=== PATIENT | female | born 1980 | race African-American/Black ===

== ENCOUNTER → 2017-12-22 | Outpatient (CLI) | payer OTHER ==
[2017-12-22 10:31] LABS: Anisocytosis Slight; Basophils % (A) 0 %; Eosinophils # (A) 0.2 k/uL (0-0.7); Eosinophils % (A) 3 %; HGB 9.4 gm/dL (11.4-16.0); Hypochromasia Marked; Lymphocytes # (A) 2.5 k/uL (1.0-4.8); Lymphocytes % (A) 47 %; MCH 20.5 pg (25.0-35.0); MCHC 28.4 g/dL (31.0-37.0); MCV 72.2 fL (80.0-100.0); Mean Platelet Volume 6.4; Microcytosis Moderate; Monocytes # (A) 0.3 k/uL (0-1.0); Monocytes % (A) 5 %; Neutrophils # (A) 2.3 k/uL (1.3-7.7); Neutrophils % (A) 42 %; Platelet Count 350 k/uL (150-450); RBC 4.57 m/uL (3.80-5.40); RDW 16.1 % (11.5-15.5); WBC 5.4 k/uL (3.8-10.6)
[2017-12-22 11:02] LABS: ALT 22 U/L (9-52); AST 22 U/L (14-36); Albumin 3.7 g/dL (3.5-5.0); Alkaline Phosphatase 67 U/L (38-126); Anion Gap 8 mmol/L; Blood Urea Nitrogen 10 mg/dL (7-17); Carbon Dioxide 29 mmol/L (22-30); Chloride 105 mmol/L (98-107); Cholesterol 153 mg/dL (<200); Glucose 109 mg/dL (74-99); HDL Cholesterol 26 mg/dL (40-60); LDL Cholesterol,Calculated 110 mg/dL (0-99); Potassium 4.1 mmol/L (3.5-5.1); Sodium 142 mmol/L (137-145); Total Bilirubin 0.4 mg/dL (0.2-1.3); Total Protein 6.9 g/dL (6.3-8.2); Triglycerides 85 mg/dL (<150)
[2017-12-22 19:23] LABS: Hemoglobin A1C 5.9 % (4.0-6.0)
== END | disposition home or self-care (01) ==
LOC: LABWHC1 09:44
PROVIDERS: ATTEND Internal Medicine
DX: D64.9 Anemia, unspecified (principal); J45.909 Unspecified asthma, uncomplicated; R53.83 Other fatigue; R73.01 Impaired fasting glucose; Z13.6 Encounter for screening for cardiovascular disorders
CPT/HCPCS: 36415; 80053; 80061; 83036; 84443; 85025

== ENCOUNTER 2020-02-01 10:04 | Emergency (ER) | payer OTHER ==
[2020-02-01 10:09] VITALS: BP 135/86; PULSE 94; RESP 18; TEMP 98.7
--- NOTE | 2020-02-01 10:36 | ED ---
URI HPI - General Chief Complaint: Upper Respiratory Infection Stated Complaint: Congested Time Seen by Provider: 02/01/20 10:10 Source: patient Mode of arrival: ambulatory Limitations: no limitations - History of Present Illness Initial Comments: Patient is a 39-year-old female presenting to the emergency Department with complaints of sinus congestion, pain for the past 4-5 days. Patient states she's been trying to treat the symptoms at home with [id number] medications but she does not feel like its getting any better. Patient is more worried than usual as her daughter is currently going through chemo treatments and she does not want this to get any worse. Patient denies having any fever, chills, chest pain, shortness of breath. She states she only has a very mild cough but more so the facial congestion. She denies any abdominal pain or nausea or vomiting. She states she does get sinus infections at least once a twice a year. She denies having headache or facial trauma. She has no further complaints at this time. Upon arrival to the ER, her vitals are stable. - Related Data Previous Rx's Medication Instructions Recorded Azithromycin [Zithromax Z-pack] 0 mg PO DIRECTED #1 pack 02/01/20 Allergies Allergy/AdvReac Type Severity Reaction Status Date / Time No Known Allergies Allergy Verified 02/01/20 10:09 Review of Systems ROS Statement: Those systems with pertinent positive or pertinent negative responses have been documented in the HPI. ROS Other: All systems not noted in ROS Statement are negative. Past Medical History Additional Past Medical History / Comment(s): Hx vaginal bleeding History of Any Multi-Drug Resistant Organisms: None Reported Past Surgical History: Section, Orthopedic Surgery Additional Past Surgical History / Comment(s): Right lower leg reconstruction,D&C Past Anesthesia/Blood Transfusion Reactions: Postoperative Nausea & Vomiting (PONV) Past Psychological History: Anxiety, Depression Smoking Status: Never smoker Past Alcohol Use History: None Reported Past Drug Use History: None Reported - Past Family History Daughter(s) Family Medical History: Cancer Additional Family Medical History / Comment(s): Brain General Exam - General Exam Comments Initial Comments: GENERAL: Patient is well-developed and well-nourished. Patient is nontoxic and in no acute distress. HEAD: Atraumatic, normocephalic. EYES: Pupils equal round and reactive to light, extraocular movements intact, sclera anicteric, conjunctiva are normal. Eyelids were unremarkable. ENT: TMs normal, nares patent, oropharynx clear without exudates. Moist mucous membranes. Mild pain with pressure over the frontal and maxillary sinuses. NECK: Normal range of motion, supple without lymphadenopathy or JVD. LUNGS: Unlabored respirations. Breath sounds clear to auscultation bilaterally and equal. No wheezes rales or rhonchi. HEART: Regular rate and rhythm without murmurs, rubs or gallops. ABDOMEN: Soft, nontender, normoactive bowel sounds. No guarding, no rebound. No masses appreciated. : Deferred MUSCULOSKELETAL: Normal extremities with adequate strength and normal range of motion, no pitting or edema. No clubbing or cyanosis. NEUROLOGICAL: Patient is alert and oriented x 3. Motor and sensory are also intact. Normal speech, normal gait. PSYCH: Normal mood, normal affect. SKIN: Warm, Dry, normal turgor, no rashes or lesions noted. Limitations: no limitations Course Vital Signs 02/01/20 10:07 Temperature 98.7 F Pulse Rate 94 Respiratory 18 Rate Blood Pressure 135/86 O2 Sat by Pulse 100 Oximetry Medical Decision Making - Medical Decision Making Patient is a 39-year-old female here for sinus congestion, pain and pressure for the last 4-5 days. She does have history sinus infections. She denies any fevers, her vital signs are stable today. Her exam is unremarkable except for some pain over her frontal and maxillary sinuses with palpation. I will start patient on an antibiotic for possible sinus infection. She is worried because her daughter is currently going through chemo and she does not want to get her daughter sick. Patient is stable for discharge. I recommended following up with her PCP if symptoms persist. Patient is in agreement with this plan of care. She is stable for discharge. Disposition Clinical Impression: Sinusitis Disposition: HOME SELF-CARE Condition: Stable Instructions (If sedation given, give patient instructions): Sinusitis (ED) Additional Instructions: Please return to the Emergency Department if symptoms worsen or any other concerns. Take antibiotic as prescribed. Trial of Afrin nasal spray for congestion. Follow-up with PCP as needed. Prescriptions: Azithromycin [Zithromax Z-pack] 0 mg PO DIRECTED #1 pack Is patient prescribed a controlled substance at d/c from ED?: No Referrals: None,Stated [Primary Care Provider] - 1-2 days
== END 2020-02-01 10:37 | disposition home or self-care (01) ==
LOC: EC 10:04
DX: J32.9 Chronic sinusitis, unspecified (principal)
CPT/HCPCS: 99283

== ENCOUNTER 2021-02-16 08:28 | Emergency (ER) | payer OTHER ==
--- NOTE | 2021-02-16 10:50 | ED ---
URI HPI - General Chief Complaint: Upper Respiratory Infection Stated Complaint: LOSS OF VOICE Time Seen by Provider: 02/16/21 10:10 Source: patient, RN notes reviewed Mode of arrival: ambulatory Limitations: no limitations - History of Present Illness Initial Comments: She is a 40-year-old female presenting to the emergency department with concerns of upper respiratory symptoms for the last 1-2 weeks. Patient states about 2 weeks ago she was outside when it was raining, started developing a sore throat, congestion. She states the symptoms have since mostly cleared, then she developed loss of voice a few days ago and continues to cough up phlegm. She states the phlegm has changed colors to a green color. She constantly gets covid swabs secondary to her daughter going to [facility] receiving chemo treatment. She states she has been negative for weeks now. Last test was a few days ago. She is concerned with her daughter's house and does not want to be sick around her. She is requesting medication. She denies any chest pain or shortness of breath. She denies any fevers or chills, no nausea or vomiting, no abdominal pain. She has no further complaints at this time. Upon arrival to the ER, her vitals are stable. - Related Data Previous Rx's Medication Instructions Recorded Azithromycin [Zithromax Z-pack (6 0 mg PO DIRECTED #1 pack 02/01/20 tabs)] Azithromycin [Zithromax Z-pack (6 0 mg PO DIRECTED #6 tab 02/16/21 tabs)] Allergies Allergy/AdvReac Type Severity Reaction Status Date / Time No Known Allergies Allergy Verified 02/16/21 09:01 Review of Systems ROS Statement: Those systems with pertinent positive or pertinent negative responses have been documented in the HPI. ROS Other: All systems not noted in ROS Statement are negative. Past Medical History Additional Past Medical History / Comment(s): Hx vaginal bleeding History of Any Multi-Drug Resistant Organisms: None Reported Past Surgical History: Section, Orthopedic Surgery Additional Past Surgical History / Comment(s): Right lower leg reconstruction,D&C Past Anesthesia/Blood Transfusion Reactions: Postoperative Nausea & Vomiting (PONV) Past Psychological History: Anxiety, Depression Smoking Status: Never smoker Past Alcohol Use History: None Reported Past Drug Use History: None Reported - Past Family History Daughter(s) Family Medical History: Cancer Additional Family Medical History / Comment(s): Brain General Exam - General Exam Comments Initial Comments: GENERAL: Patient is well-developed and well-nourished. Patient is nontoxic and in no acute distress. HEAD: Atraumatic, normocephalic. EYES: Pupils equal round and reactive to light, extraocular movements intact, sclera anicteric, conjunctiva are normal. Eyelids were unremarkable. ENT: Nares patent, oropharynx clear without exudates. Moist mucous membranes. NECK: Normal range of motion, supple without lymphadenopathy or JVD. LUNGS: Unlabored respirations. Breath sounds clear to auscultation bilaterally and equal. No wheezes rales or rhonchi. HEART: Regular rate and rhythm without murmurs, rubs or gallops. MUSCULOSKELETAL: Normal extremities with adequate strength and normal range of motion, no pitting or edema. No clubbing or cyanosis. NEUROLOGICAL: Patient is alert and oriented x 3. Symmetrical smile. Normal speech, normal gait. PSYCH: Normal mood, normal affect. SKIN: Warm, Dry, normal turgor, no rashes or lesions noted. Limitations: no limitations Medical Decision Making - Medical Decision Making Patient is a 40-year-old female here with upper respiratory type symptoms over the past 1-2 weeks. No fevers, covid test a few days ago was negative. No chest pain or shortness of breath. Her exam is unremarkable except for loss of voice. Her vitals are stable. Patient is concerned as her daughter is sick and receiving chemo treatments at this time. She is requesting antibiotics. I will prescribe her a Z-Alfonso for upper respiratory infection. She can follow-up with her primary. She is agreeable to this and is stable for discharge. Disposition Clinical Impression: Acute upper respiratory infection Disposition: HOME SELF-CARE Condition: Stable Instructions (If sedation given, give patient instructions): Upper Respiratory Infection (ED) Additional Instructions: Please return to the Emergency Department if symptoms worsen or any other concerns. Take antibiotic as prescribed. May use Tylenol or Motrin as needed for any symptoms. Please follow-up with your primary care. Prescriptions: Azithromycin [Zithromax Z-pack (6 tabs)] 0 mg PO DIRECTED #6 tab Is patient prescribed a controlled substance at d/c from ED?: No Referrals: None,Stated [Primary Care Provider] - 1-2 days Time of Disposition: 10:50
[2021-02-16 11:12] VITALS: BP 139/95; PULSE 107; RESP 18; TEMP 98.6
== END 2021-02-16 11:16 | disposition home or self-care (01) ==
LOC: EC 08:28
DX: J06.9 Acute upper respiratory infection, unspecified (principal)
CPT/HCPCS: 99283

== ENCOUNTER 2021-11-22 06:52 | Emergency (ER) | payer OTHER ==
[2021-11-22 07:09] VITALS: TEMP 97.4
[2021-11-22 07:20] VITALS: RESP 16
--- NOTE | 2021-11-22 07:20 | ED ---
General Adult HPI - General Chief complaint: Upper Respiratory Infection Stated complaint: Cough Time Seen by Provider: 11/22/21 07:06 Source: patient, RN notes reviewed, old records reviewed Mode of arrival: ambulatory Limitations: no limitations - History of Present Illness Initial comments: 41-year-old female with 3 or 4 days of cough, congestion, subjective fever and chills. Patient states she initially thought this was just related to seasonal ALLERGIES. Has progressed. She denies measured fever but has had hot and cold sensation. She denies GI symptoms, no nausea vomiting or diarrhea. No dyspnea. Patient is otherwise healthy. - Related Data Home Medications Medication Instructions Recorded Confirmed guaiFENesin [Mucinex] 600 mg PO BID PRN 02/16/21 02/16/21 Previous Rx's Medication Instructions Recorded Azithromycin [Zithromax Z-pack (6 0 mg PO DIRECTED #6 tab 02/16/21 tabs)] Allergies Allergy/AdvReac Type Severity Reaction Status Date / Time No Known Allergies Allergy Verified 02/16/21 10:56 Review of Systems ROS Statement: Those systems with pertinent positive or pertinent negative responses have been documented in the HPI. ROS Other: All systems not noted in ROS Statement are negative. Past Medical History Additional Past Medical History / Comment(s): Hx vaginal bleeding, leg pain History of Any Multi-Drug Resistant Organisms: None Reported Past Surgical History: Section, Orthopedic Surgery Additional Past Surgical History / Comment(s): Right lower leg reconstruction,D&C Past Anesthesia/Blood Transfusion Reactions: Postoperative Nausea & Vomiting (PONV) Past Psychological History: Anxiety, Depression Smoking Status: Never smoker Past Alcohol Use History: None Reported Past Drug Use History: None Reported - Past Family History Daughter(s) Family Medical History: Cancer Additional Family Medical History / Comment(s): Brain General Exam Limitations: no limitations General appearance: alert, in no apparent distress Head exam: Present: atraumatic, normocephalic Eye exam: Present: normal appearance, PERRL ENT exam: Present: normal oropharynx, mucous membranes moist Neck exam: Present: normal inspection. Absent: tenderness, meningismus Respiratory exam: Present: normal lung sounds bilaterally. Absent: respiratory distress, wheezes Cardiovascular Exam: Present: regular rate, normal rhythm GI/Abdominal exam: Present: soft. Absent: distended, tenderness Extremities exam: Present: normal inspection, normal capillary refill Neurological exam: Present: alert, oriented X3, CN II-XII intact. Absent: motor sensory deficit Psychiatric exam: Present: normal affect, normal mood Skin exam: Present: warm, dry, intact. Absent: cyanosis, diaphoretic Course Vital Signs 11/22/21 11/22/21 06:59 07:14 Temperature 97.4 F L Pulse Rate 77 Respiratory 18 16 Rate Blood Pressure 124/84 O2 Sat by Pulse 98 Oximetry Medical Decision Making - Medical Decision Making 41-year-old female with cough, congestion. Patient is well-appearing. Stable vitals. X-rays performed which is negative for focal pneumonia. Coronavirus testing is negative. This likely viral URI. Patient will follow with primary care provider. - Lab Data Lab Results 11/22/21 Range/Units 07:30 Coronavirus (PCR) Not Detected (Not Detectd) Disposition Clinical Impression: Viral upper respiratory infection Disposition: HOME SELF-CARE Condition: Good Instructions (If sedation given, give patient instructions): Upper Respiratory Infection (ED) Is patient prescribed a controlled substance at d/c from ED?: No Referrals: None,Stated [Primary Care Provider] - 1-2 days Taras Fernandez III, MD [STAFF PHYSICIAN] - 1-2 days Randell Kamara MD [STAFF PHYSICIAN] - 1-[address] Barry MD [REFERRING] - 1-2 days Time of Disposition: 08:03
--- NOTE | 2021-11-22 07:50 | XR ---
EXAMINATION TYPE: XR chest 2V DATE OF EXAM: 11/22/2021 COMPARISON: Chest x-ray May 08, 2014 HISTORY: Cough and fever and chills. TECHNIQUE: Frontal and lateral views of the chest are obtained. FINDINGS: There is no suspicious new focal air space opacity, pleural effusion, or pneumothorax seen . The cardiac silhouette size is mildly enlarged. The osseous structures are intact. IMPRESSION: No suspicious peripheral increased opacity.
[2021-11-22 08:24] VITALS: BP 126/78; PULSE 68
== END 2021-11-22 08:23 | disposition home or self-care (01) ==
LOC: EC 06:52
DX: J06.9 Acute upper respiratory infection, unspecified (principal); Z20.822 Contact with and (suspected) exposure to COVID-19
CPT/HCPCS: 71046; 87635; 99283

== ENCOUNTER 2022-03-23 08:17 | Emergency (ER) | payer OTHER ==
[2022-03-23 08:27] VITALS: TEMP 97.6
--- NOTE | 2022-03-23 09:03 | ED ---
URI HPI - General Chief Complaint: Upper Respiratory Infection Stated Complaint: congestion Time Seen by Provider: 03/23/22 08:21 Source: patient, RN notes reviewed Mode of arrival: ambulatory Limitations: no limitations - History of Present Illness Initial Comments: Patient is a 41 year old female presenting to the ER with a chief complaint of cough and congestion. She reports this began a little over a week ago. She experienced a cough and congestion. Patient took over the counter cough medication and pain relievers which helped. Patient took an at home COVID test three days ago which was negative. Patient denies fevers, chills, nightsweats, abdominal pain, shortness of breath, or chest pain. - Related Data Home Medications Medication Instructions Recorded Confirmed guaiFENesin [Mucinex] 600 mg PO BID PRN 02/16/21 02/16/21 Previous Rx's Medication Instructions Recorded Azithromycin [Zithromax Z-pack (6 0 mg PO DIRECTED #6 tab 02/16/21 tabs)] Allergies Allergy/AdvReac Type Severity Reaction Status Date / Time No Known Allergies Allergy Verified 03/23/22 08:27 Review of Systems ROS Statement: Those systems with pertinent positive or pertinent negative responses have been documented in the HPI. ROS Other: All systems not noted in ROS Statement are negative. Past Medical History Additional Past Medical History / Comment(s): Hx vaginal bleeding, leg pain History of Any Multi-Drug Resistant Organisms: None Reported Past Surgical History: Section, Orthopedic Surgery Additional Past Surgical History / Comment(s): Right lower leg reconstruction,D&C Past Anesthesia/Blood Transfusion Reactions: Postoperative Nausea & Vomiting (PONV) Past Psychological History: Anxiety, Depression Smoking Status: Never smoker Past Alcohol Use History: None Reported Past Drug Use History: None Reported - Past Family History Daughter(s) Family Medical History: Cancer Additional Family Medical History / Comment(s): Brain General Exam Limitations: no limitations General appearance: alert, in no apparent distress Head exam: Present: atraumatic, normocephalic, normal inspection Eye exam: Present: normal appearance, PERRL, EOMI. Absent: scleral icterus, conjunctival injection, periorbital swelling ENT exam: Present: normal exam, mucous membranes moist Respiratory exam: Present: normal lung sounds bilaterally. Absent: respiratory distress, wheezes, rales, rhonchi, stridor Cardiovascular Exam: Present: regular rate, normal rhythm, normal heart sounds. Absent: systolic murmur, diastolic murmur, rubs, gallop, clicks GI/Abdominal exam: Present: soft, normal bowel sounds. Absent: distended, tenderness, guarding, rebound, rigid Neurological exam: Present: alert, oriented X3, CN II-XII intact Psychiatric exam: Present: normal affect, normal mood Course Vital Signs 03/23/22 08:26 Temperature 97.6 F Pulse Rate 80 Respiratory 18 Rate Blood Pressure 130/86 O2 Sat by Pulse 98 Oximetry Medical Decision Making - Medical Decision Making 41-year-old female presented for cough congestion. Patient is negative COVID-19 though daughter digits has positive COVID-19 patient is stable for discharge return parameters were discussed. - Lab Data Lab Results 03/23/22 Range/Units 08:47 Coronavirus (PCR) Not Detected (Not Detectd) Disposition Clinical Impression: Acute upper respiratory infection, Exposure to COVID-19 virus Disposition: HOME SELF-CARE Condition: Stable Instructions (If sedation given, give patient instructions): Upper Respiratory Infection (ED) Additional Instructions: Please return to the Emergency Department if symptoms worsen or any other concerns. Is patient prescribed a controlled substance at d/c from ED?: No Referrals: None,Stated [Primary Care Provider] - 1-2 days Time of Disposition: 10:15
[2022-03-23 10:23] VITALS: BP 131/74; PULSE 92; RESP 16
== END 2022-03-23 10:23 | disposition home or self-care (01) ==
LOC: EC 08:17
DX: J06.9 Acute upper respiratory infection, unspecified (principal); F41.9 Anxiety disorder, unspecified; F32.A Depression, unspecified; Z20.822 Contact with and (suspected) exposure to COVID-19
CPT/HCPCS: 87635; 99283

== ENCOUNTER 2022-04-05 21:10 | Emergency (ER) | payer OTHER ==
[2022-04-05 21:19] VITALS: RESP 16
[2022-04-05] MEDS ORDERED: AZITHROMYCIN 500 MG TAB PO STA (22:12)
--- NOTE | 2022-04-05 22:18 | ED ---
URI HPI - General Chief Complaint: Upper Respiratory Infection Stated Complaint: Re-check,Congestion Time Seen by Provider: 04/05/22 21:25 Source: patient, RN notes reviewed, old records reviewed Mode of arrival: ambulatory Limitations: no limitations - History of Present Illness Initial Comments: This is a 41-year-old female to the emergency department for evaluation today. Patient of cough congestion runny nose upper respiratory symptoms. Persistent symptoms here in the ER despite 1 week for coronavirus and negative. Patient feels like symptoms of been in her chest throughout and upper airway, nose. MD Complaint: cough, sore throat, nasal congestion -: hour(s) Severity: mild Severity scale (1-10): 3 Quality: dull Consistency: intermittent Improves With: nothing Worsens With: activity Context: sick contacts Associated Symptoms: nasal congestion, sore throat, cough, shortness of breath Treatments Prior to Arrival: none - Related Data Home Medications Medication Instructions Recorded Confirmed guaiFENesin [Mucinex] 600 mg PO BID PRN 02/16/21 02/16/21 Previous Rx's Medication Instructions Recorded RX: Azithromycin [Zithromax Z-pack 0 mg PO DIRECTED #6 tab 02/16/21 (6 tabs)] Loratadine-Pseudoeph 10-240 mg 1 tab PO DAILY #10 tab 04/05/22 [Claritin-D 24 Hour] RX: Azithromycin [Zithromax] 500 mg PO DAILY 5 Days #5 tab 04/05/22 Allergies Allergy/AdvReac Type Severity Reaction Status Date / Time No Known Allergies Allergy Verified 04/05/22 21:16 Review of Systems ROS Statement: Those systems with pertinent positive or pertinent negative responses have been documented in the HPI. ROS Other: All systems not noted in ROS Statement are negative. Past Medical History Additional Past Medical History / Comment(s): Hx vaginal bleeding, leg pain History of Any Multi-Drug Resistant Organisms: None Reported Past Surgical History: Section, Orthopedic Surgery Additional Past Surgical History / Comment(s): Right lower leg reconstruction,D&C Past Anesthesia/Blood Transfusion Reactions: Postoperative Nausea & Vomiting (PONV) Past Psychological History: Anxiety, Depression Smoking Status: Never smoker Past Alcohol Use History: None Reported Past Drug Use History: None Reported - Past Family History Daughter(s) Family Medical History: Cancer Additional Family Medical History / Comment(s): Brain General Exam Limitations: no limitations General appearance: alert, in no apparent distress Head exam: Present: atraumatic, normocephalic, normal inspection Eye exam: Present: normal appearance, PERRL, EOMI. Absent: scleral icterus, conjunctival injection, periorbital swelling ENT exam: Present: normal exam, mucous membranes moist Neck exam: Present: normal inspection. Absent: tenderness, meningismus, lymphadenopathy Respiratory exam: Present: normal lung sounds bilaterally. Absent: respiratory distress, wheezes, rales, rhonchi, stridor Cardiovascular Exam: Present: regular rate, normal rhythm, normal heart sounds. Absent: systolic murmur, diastolic murmur, rubs, gallop, clicks GI/Abdominal exam: Present: soft, normal bowel sounds. Absent: distended, tenderness, guarding, rebound, rigid Extremities exam: Present: normal inspection, full ROM, normal capillary refill. Absent: tenderness, pedal edema, joint swelling, calf tenderness Back exam: Present: normal inspection Neurological exam: Present: alert, oriented X3, CN II-XII intact Psychiatric exam: Present: normal affect, normal mood Skin exam: Present: warm, dry, intact, normal color. Absent: rash Course Vital Signs 04/05/22 04/05/22 21:16 21:24 Temperature 98.3 F Pulse Rate 86 Respiratory 16 16 Rate Blood Pressure 142/88 O2 Sat by Pulse 98 Oximetry - Reevaluation(s) Reevaluation #1: 04/05/22 22:33 Medical records reviewed Reevaluation #2: 04/05/22 22:34 Patient informed results questions are answered Reevaluation #3: 04/05/22 22:34 No real change in symptoms here in the ER Medical Decision Making - Medical Decision Making 41 female to the emergency department for evaluation patient presents today for evaluation regards to when he nose cough congestion. Patient will place on antibiotics and discharged home normal chest x-ray - Radiology Data Radiology results: report reviewed (Chest x-rays negative for acute disease), image reviewed Disposition Clinical Impression: Sinusitis, Bronchitis Disposition: HOME SELF-CARE Condition: Good Instructions (If sedation given, give patient instructions): Sinusitis (ED), A cute Bronchitis (ED) Prescriptions: Loratadine-Pseudoeph 10-240 mg [Claritin-D 24 Hour] 1 tab PO DAILY #10 tab RX: Azithromycin [Zithromax] 500 mg PO DAILY 5 Days #5 tab Is patient prescribed a controlled substance at d/c from ED?: No Referrals: None,Stated [Primary Care Provider] - 1-2 days Time of Disposition: 22:30
--- NOTE | 2022-04-05 23:07 | XR ---
EXAMINATION TYPE: XR chest 1V portable DATE OF EXAM: 04/05/2022 COMPARISON: 11/22/2021 HISTORY: Cough TECHNIQUE: Single view FINDINGS: There is no heart failure nor confluent pneumonic infiltrate. Costophrenic angles are clear . Bony thorax is intact IMPRESSION: No active cardiopulmonary disease. No change.
[2022-04-05 23:45] VITALS: BP 136/86; PULSE 100; TEMP 97.6
== END 2022-04-05 23:45 | disposition home or self-care (01) ==
LOC: EC 21:10
DX: J32.9 Chronic sinusitis, unspecified (principal); J40 Bronchitis, not specified as acute or chronic
CPT/HCPCS: 71045; 99284

== ENCOUNTER 2023-12-05 06:31 | Emergency (ER) | payer OTHER ==
[2023-12-05 06:36] VITALS: RESP 18; TEMP 98.3
--- NOTE | 2023-12-05 06:55 | ED ---
General Adult HPI - General Chief complaint: Nausea/Vomiting/Diarrhea Stated complaint: NVD Time Seen by Provider: 12/05/23 06:52 Source: patient, RN notes reviewed Mode of arrival: wheelchair Limitations: no limitations - History of Present Illness Initial comments: 43-year-old female presented to the ER with a chief complaint of nausea and vomiting. Patient was seen at [facility] and diagnosed with strep pharyngitis on 12-04-2023.. She was started on amoxicillin. Patient has since taken 4 doses. She states this morning while on her way to the hospital to visit her son who is currently admitted she started to feel extremely nauseous and had multiple episodes of vomiting with brought her to the ER. She also reports she has a another child at home who has brain cancer. She states she has been unable to sleep due to her anxiety and feeling unwell. She denies any headache, cough, chest pain, shortness of breath, abdominal pain or peripheral edema. - Related Data Home Medications Medication Instructions Recorded Confirmed guaiFENesin [Mucinex] 600 mg PO BID PRN 02/16/21 02/16/21 Previous Rx's Medication Instructions Recorded Azithromycin [Zithromax Z-pack (6 0 mg PO DIRECTED #6 tab 02/16/21 tabs)] Azithromycin [Zithromax] 500 mg PO DAILY 5 Days #5 tab 04/05/22 Loratadine-Pseudoeph 10-240 mg 1 tab PO DAILY #10 tab 04/05/22 [Claritin-D 24 Hour] Melatonin 3 mg PO HS #15 tablet 12/05/23 Ondansetron Odt [Zofran Odt] 4 mg PO Q8HR PRN #10 tab 12/05/23 Allergies Allergy/AdvReac Type Severity Reaction Status Date / Time No Known Allergies Allergy Verified 12/05/23 06:36 Review of Systems ROS Statement: Those systems with pertinent positive or pertinent negative responses have been documented in the HPI. ROS Other: All systems not noted in ROS Statement are negative. Past Medical History Additional Past Medical History / Comment(s): Hx vaginal bleeding, leg pain History of Any Multi-Drug Resistant Organisms: None Reported Past Surgical History: Section, Orthopedic Surgery Additional Past Surgical History / Comment(s): Right lower leg reconstruction,D&C Past Anesthesia/Blood Transfusion Reactions: Postoperative Nausea & Vomiting (PONV) Past Psychological History: Anxiety, Depression Smoking Status: Never smoker Past Alcohol Use History: None Reported Past Drug Use History: None Reported - Past Family History Daughter(s) Family Medical History: Cancer Additional Family Medical History / Comment(s): Brain General Exam General appearance: alert, in no apparent distress ENT exam: Present: normal exam, normal oropharynx (Bilateral tonsils edematous with white exudates), mucous membranes moist, TM's normal bilaterally (No mastoid tenderness) Neck exam: Present: normal inspection, tenderness (Submandibular lymph nodes) Respiratory exam: Present: normal lung sounds bilaterally. Absent: respiratory distress, wheezes, rales, rhonchi, stridor Cardiovascular Exam: Present: regular rate, normal rhythm, normal heart sounds. Absent: systolic murmur, diastolic murmur, rubs, gallop, clicks Extremities exam: Present: normal inspection, full ROM, normal capillary refill. Absent: tenderness, pedal edema, joint swelling, calf tenderness Neurological exam: Present: alert, oriented X3, CN II-XII intact Psychiatric exam: Present: normal affect, normal mood Skin exam: Present: warm, dry, intact, normal color. Absent: rash Course Vital Signs 12/05/23 12/05/23 06:33 08:39 Temperature 98.3 F Pulse Rate 99 78 Respiratory 18 18 Rate Blood Pressure 157/93 133/76 O2 Sat by Pulse 96 98 Oximetry Medical Decision Making - Medical Decision Making Was pt. sent in by a medical professional or institution (, PA, RUBBER PRESS TENDER, urgent care, hospital, or [place] health care facility...) When possible be specific @ -No Did you speak to anyone other than the patient for history (EMS, parent, family, police, friend...)? What history was obtained from this source @ -No Did you review nursing and triage notes (agree or disagree)? Why? @ -I reviewed and agree with nursing and triage notes Were old charts reviewed (outside hosp., previous admission, EMS record, old EKG, old radiological studies, urgent care reports/EKG's, [place] health care facility records)? Report findings @ -No old charts were reviewed Differential Diagnosis (chest pain, altered mental status, abdominal pain women, abdominal pain men, vaginal bleeding, weakness, fever, dyspnea, syncope, headache, dizziness, GI bleed, back pain, seizure, CVA, palpatations, mental health, musculoskeletal)? @ -COVID, RSV, influenza, viral sinusitis, pneumonia this list is not meant to be all-inclusive EKG interpreted by me (3pts min.). @ -None X-rays interpreted by me (1pt min.). @ -None done CT interpreted by me (1pt min.). @ -None done U/S interpreted by me (1pt. min.). @ -None done What testing was considered but not performed or refused? (CT, X-rays, U/S, labs)? Why? @ -None What meds were considered but not given or refused? Why? @ -None Did you discuss the management of the patient with other professionals (professionals i.e. , PA, RUBBER PRESS TENDER, lab, RT, psych nurse, social media strategist, jail officer, teacher, commercial loan officer, patient case coordinator)? Give summary @ -No Was smoking cessation discussed for >3mins.? @ -No Was critical care preformed (if so, how long)? @ -No Were there social determinants of health that impacted care today? How? (Homelessness, low income, unemployed, alcoholism, drug addiction, transportation, low edu. Level, literacy, decrease access to med. care, usp, rehab)? @ -No Was there de-escalation of care discussed even if they declined (Discuss DNR or withdrawal of care, Hospice)? DNR status @ -No What co-morbidities impacted this encounter? (DM, HTN, Smoking, COPD, CAD, Cancer, CVA, ARF, Chemo, Hep., AIDS, mental health diagnosis, sleep apnea, morbid obesity)? @ -None Was patient admitted / discharged? Hospital course, mention meds given and route, prescriptions, significant lab abnormalities, going to OR and other pertinent info. @ - Discharged. 43-year-old female presented to the ER with a chief complaint of nausea and vomiting. Patient recently diagnosed with strep pharyngitis 2 days ago. She also reports multiple life stressors as both of her children have serious medical conditions. History and physical exam completed. Vitals stable. Patient in no signs of acute distress and nontoxic-appearing. Patient is tearful on exam. Exam remarkable for bilateral tonsils edematous with white exudates. Oropharynx patent. Tenderness to submandibular lymph nodes. Otherwise exam unremarkable. Laboratory studies obtained remarkable for leukocytosis white blood cell count 12 0.7 with a left shift which is likely related to strep infection. Microcytic hypochromic anemia hemoglobin 8.4 which appears to be chronic in nature. Labs otherwise unremarkable. Patient received IV fluids, Zofran and Reglan for symptom control in the ER. Upon reevaluation, patient resting comfortably in exam room in no signs acute distress. Results discussed with patient, all questions answered. Patient expressing concern of insomnia. Patient will be discharged with prescription of melatonin and Zofran. Advise close follow-up with PCP. I also advised her to continue taking amoxicillin as prescribed. Strict return parameters discussed. Patient discharged stable condition with follow-up to PCP. Patient verbally expressed understanding agreement care plan. Case discussed with ED attending, Dr. Shay. Undiagnosed new problem with uncertain prognosis? @ -No Drug Therapy requiring intensive monitoring for toxicity (Heparin, Nitro, Insulin, Cardizem)? @ -No Were any procedures done? @ -No Diagnosis/symptom? @ -Nausea and vomiting/strep pharyngitis anxiety Acute, or Chronic, or Acute on Chronic? @ -Acute Uncomplicated (without systemic symptoms) or Complicated (systemic symptoms)? @ -Uncomplicated Side effects of treatment? @ -No Exacerbation, Progression, or Severe Exacerbation? @ -No Poses a threat to life or bodily function? How? (Chest pain, USA, CA, pneumonia, PE, COPD, DKA, ARF, appy, cholecystitis, CVA, Diverticulitis, Homicidal, Suicidal, threat to staff... and all critical care pts) @ -No - Lab Data Result diagrams: 12/05/23 07:35 12/05/23 07:35 Lab Results 12/05/23 12/05/23 Range/Units 07:35 07:35 WBC 12.7 H (3.8-10.6) k/uL RBC 4.55 (3.80-5.40) m/uL Hgb 8.4 L (11.4-16.0) gm/dL Hct 30.0 L (34.0-46.0) % MCV 65.8 L (80.0-100.0) fL MCH 18.4 L (25.0-35.0) pg MCHC 27.9 L (31.0-37.0) g/dL RDW 18.8 H (11.5-15.5) % Plt Count 341 (150-450) k/uL MPV 6.4 Neutrophils % 76 % Lymphocytes % 14 % Monocytes % 5 % Eosinophils % 3 % Basophils % 0 % Neutrophils # 9.6 H (1.3-7.7) k/uL Lymphocytes # 1.7 (1.0-4.8) k/uL Monocytes # 0.7 (0-1.0) k/uL Eosinophils # 0.3 (0-0.7) k/uL Basophils # 0.0 (0-0.2) k/uL Hypochromasia Marked Anisocytosis Slight Microcytosis Marked Sodium 138 (137-145) mmol/L Potassium 4.0 (3.5-5.1) mmol/L Chloride 107 (98-107) mmol/L Carbon Dioxide 24 (22-30) mmol/L Anion Gap 7 mmol/L BUN 4 L (7-17) mg/dL Creatinine 0.55 (0.52-1.04) mg/dL Est GFR (CKD-EPI)AfAm >90 (>60 ml/min/1.73 sqM) Est GFR (CKD-EPI)NonAf >90 (>60 ml/min/1.73 sqM) Glucose 132 H (74-99) mg/dL Calcium 8.5 (8.4-10.2) mg/dL Total Bilirubin 0.8 (0.2-1.3) mg/dL AST 26 (14-36) U/L ALT 16 (4-34) U/L Alkaline Phosphatase 77 (38-126) U/L Total Protein 7.1 (6.3-8.2) g/dL Albumin 3.7 (3.5-5.0) g/dL Disposition Clinical Impression: Strep pharyngitis, Nausea & vomiting Disposition: HOME SELF-CARE Condition: Stable Instructions (If sedation given, give patient instructions): Strep Throat (DC), Acute Nausea and Vomiting (ED) Additional Instructions: Continue taking amoxicillin as prescribed. Take Zofran as needed for nausea. Take melatonin approximately 30 minutes prior to bed. Follow-up with PCP. Return to the ER for any new or worsening concerns. Prescriptions: Melatonin 3 mg PO HS #15 tablet Ondansetron Odt [Zofran Odt] 4 mg PO Q8HR PRN #10 tab PRN Reason: Nausea Is patient prescribed a controlled substance at d/c from ED?: No Referrals: None,Stated [Primary Care Provider] - 1-2 days Forms: Area PCPs Time of Disposition: 08:22
[2023-12-05 07:41] LABS: Anisocytosis Slight; Basophils % (A) 0 %; Eosinophils # (A) 0.3 k/uL (0-0.7); Eosinophils % (A) 3 %; HGB 8.4 gm/dL (11.4-16.0); Hypochromasia Marked; Lymphocytes # (A) 1.7 k/uL (1.0-4.8); Lymphocytes % (A) 14 %; MCH 18.4 pg (25.0-35.0); MCHC 27.9 g/dL (31.0-37.0); MCV 65.8 fL (80.0-100.0); Mean Platelet Volume 6.4; Microcytosis Marked; Monocytes # (A) 0.7 k/uL (0-1.0); Monocytes % (A) 5 %; Neutrophils # (A) 9.6 k/uL (1.3-7.7); Neutrophils % (A) 76 %; Platelet Count 341 k/uL (150-450); RBC 4.55 m/uL (3.80-5.40); RDW 18.8 % (11.5-15.5); WBC 12.7 k/uL (3.8-10.6)
[2023-12-05] MEDS: SODIUM CHLORIDE 0.9% 1,000 ML IV STA (07:49)
[2023-12-05] MEDS: ONDANSETRON 4 MG/2 ML VIAL IVP STA (07:49)
[2023-12-05 07:57] LABS: ALT 16 U/L (4-34); AST 26 U/L (14-36); African American GFR (CKD) >90 (>60 ml/min/1.73 sqM); Albumin 3.7 g/dL (3.5-5.0); Alkaline Phosphatase 77 U/L (38-126); Anion Gap 7 mmol/L; Blood Urea Nitrogen 4 mg/dL (7-17); Calcium 8.5 mg/dL (8.4-10.2); Carbon Dioxide 24 mmol/L (22-30); Chloride 107 mmol/L (98-107); Glucose 132 mg/dL (74-99); Non-African American GFR(CKD) >90 (>60 ml/min/1.73 sqM); Sodium 138 mmol/L (137-145); Total Bilirubin 0.8 mg/dL (0.2-1.3); Total Protein 7.1 g/dL (6.3-8.2)
[2023-12-05] MEDS: METOCLOPRAMIDE 5 MG/ML 2 ML VIAL IVP STA (08:39)
[2023-12-05 08:40] VITALS: BP 133/76; PULSE 78
== END 2023-12-05 08:40 | disposition home or self-care (01) ==
LOC: EC 06:31
DX: J02.0 Streptococcal pharyngitis (principal)
CPT/HCPCS: 36415; 80053; 85025; 99284; 96374; 96361; J2405

== ENCOUNTER 2024-07-18 06:16 | Emergency (ER) | payer OTHER ==
[2024-07-18 06:25] VITALS: BP 140/85; PULSE 92; RESP 18; TEMP 97.3
--- NOTE | 2024-07-18 07:11 | ED ---
URI HPI - General Chief Complaint: Upper Respiratory Infection Stated Complaint: shakes,fever Time Seen by Provider: 07/18/24 06:28 Source: patient, RN notes reviewed Mode of arrival: ambulatory Limitations: no limitations - History of Present Illness Initial Comments: This is a 44-year-old female who presents to the emergency department for an upper respiratory infection. States that she has been dealing with coughing and congestion for the last 3 to 4 days. Her daughter is sick with the same symptoms. She did have negative COVID and influenza testing 3 days ago. She has been taking [id number] medication for her symptoms. States that she does not want to stay for any additional testing or medication, she only wants to know if it is okay for her to continue taking ibuprofen and Tylenol longer than 3 to 4 days for the fever. - Related Data Home Medications Medication Instructions Recorded Confirmed guaiFENesin [Mucinex] 600 mg PO BID PRN 02/16/21 02/16/21 Previous Rx's Medication Instructions Recorded Azithromycin [Zithromax Z-pack (6 0 mg PO DIRECTED #6 tab 02/16/21 tabs)] Azithromycin [Zithromax] 500 mg PO DAILY 5 Days #5 tab 04/05/22 Loratadine-Pseudoeph 10-240 mg 1 tab PO DAILY #10 tab 04/05/22 [Claritin-D 24 Hour] Melatonin 3 mg PO HS #15 tablet 12/05/23 Ondansetron Odt [Zofran Odt] 4 mg PO Q8HR PRN #10 tab 12/05/23 Allergies Allergy/AdvReac Type Severity Reaction Status Date / Time No Known Allergies Allergy Verified 07/18/24 06:25 Review of Systems ROS Statement: Those systems with pertinent positive or pertinent negative responses have been documented in the HPI. ROS Other: All systems not noted in ROS Statement are negative. Past Medical History Additional Past Medical History / Comment(s): Hx vaginal bleeding, leg pain History of Any Multi-Drug Resistant Organisms: None Reported Past Surgical History: Section, Orthopedic Surgery Additional Past Surgical History / Comment(s): Right lower leg reconstruction,D&C Past Anesthesia/Blood Transfusion Reactions: Postoperative Nausea & Vomiting (PONV) Past Psychological History: Anxiety, Depression Smoking Status: Never smoker Past Alcohol Use History: None Reported Past Drug Use History: None Reported - Past Family History Daughter(s) Family Medical History: Cancer Additional Family Medical History / Comment(s): Brain General Exam Limitations: no limitations General appearance: alert, in no apparent distress Head exam: Present: atraumatic, normocephalic, normal inspection Respiratory exam: Present: normal lung sounds bilaterally. Absent: respiratory distress, wheezes, rales, rhonchi, stridor Cardiovascular Exam: Present: regular rate, normal rhythm Neurological exam: Present: alert, oriented X3, CN II-XII intact Psychiatric exam: Present: normal affect, normal mood Skin exam: Present: warm, dry, intact, normal color. Absent: rash Course Vital Signs 07/18/24 06:24 Temperature 97.3 F L Pulse Rate 92 Respiratory 18 Rate Blood Pressure 140/85 O2 Sat by Pulse 96 Oximetry Medical Decision Making - Medical Decision Making This is a 44-year-old female who presents to the emergency department for coughing and congestion. Was pt. sent in by a medical professional or institution? @ -No Did you speak to anyone other than the patient for history? @ -No Did you review nursing and triage notes? @ -Yes, and I agree, it is accurate with regards to the patient's symptoms. Were old charts reviewed? @ -No Differential Diagnosis? @ -Differential Cough: Influenza, Covid, RSV, croup, allergic rhinitis, GERD, pneumonia, bronchitis, COPD, viral pharyngitis, streptococcal pharyngitis, this is not meant to be an all-inclusive list. EKG interpreted by me (3pts min.)? @ -Not obtained X-rays interpreted by me (1pt min.)? @ -Not obtained CT interpreted by me (1pt min.)? @ -Not obtained U/S interpreted by me (1pt. min.)? @ -Not obtained What testing was considered but not performed? (CT, X-rays, U/S, labs)? Why? @ -Cepheid 4 Plex swab and chest x-ray, however patient declined. What meds were considered but not given? Why? @ -None Did you discuss the management of the patient with other professionals? @ -No Did you reconcile home meds? @ -No Was smoking cessation discussed for >3mins.? @ -No Was critical care preformed (if so, how long)? @ -No Were there social determinants of health that impacted care today? How? (Homelessness, low income, unemployed, alcoholism, drug addiction, transportation, low edu. Level, literacy, decrease access to med. care, custodial, rehab)? @ -No Was there de-escalation of care discussed even if they declined? (Discuss DNR or withdrawal of care, Hospice)? @ -No What co-morbidities impacted this encounter? (DM, HTN, Smoking, COPD, CAD, Cancer, CVA, Hep., AIDS, mental health diagnosis, sleep apnea, morbid obesity)? @ -None Was patient admitted / discharged? @ -Discharged. Patient did not want viral swabs or a chest x-ray. She only wanted to know if it was okay for her to continue taking ibuprofen and Tylenol for fevers if they continue to recur. She has been taking them for 3 to 4 days at this point. Advised that it is okay to continue to do so for the duration of her fever. She will also continue taking [id number] cold medication as n eeded. Advised follow-up with her PCP for reevaluation. Patient discharged home in stable condition. Case discussed with ED attending Dr. Reina. Return precautions reviewed in depth, the patient is instructed to return to the emergency department with any new, worsening, or concerning symptoms. Patient verbalized understanding. Undiagnosed new problem with uncertain prognosis? @ -None Drug Therapy requiring intensive monitoring for toxicity (Heparin, Nitro, Insulin, Cardizem)? @ -None Were any procedures done? @ -None Diagnosis/symptom? @ -Viral URI Acute, or Chronic, or Acute on Chronic? @ -Acute Uncomplicated (without systemic symptoms) or Complicated (systemic symptoms)? @ -Uncomplicated Side effects of treatment? @ -None Exacerbation, Progression, or Severe Exacerbation] @ -Not applicable Poses a threat to life or bodily function? @ -No Disposition Clinical Impression: Upper respiratory tract infection Disposition: HOME SELF-CARE Instructions (If sedation given, give patient instructions): Upper Respiratory Infection (ED) Additional Instructions: Return to the emergency department with any new, worsening, or concerning symptoms. Follow up with your primary care provider in 1-2 days. Is patient prescribed a controlled substance at d/c from ED?: No Referrals: None,Stated [Primary Care Provider] - 1-2 days
== END 2024-07-18 06:47 | disposition home or self-care (01) ==
LOC: EC 06:16
DX: J06.9 Acute upper respiratory infection, unspecified (principal)
CPT/HCPCS: 99283

== ENCOUNTER 2024-07-26 03:55 | Emergency (ER) | payer OTHER ==
[2024-07-26 04:02] VITALS: RESP 18
[2024-07-26] MEDS: HYDROcodone/APAP 7.5-325MG 1 EACH TAB PO ONE (05:09)
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
[2024-07-26 05:13] LABS: Anisocytosis Slight; Basophils % (A) 0 %; Eosinophils # (A) 0.3 k/uL (0-0.7); Eosinophils % (A) 3 %; HCT 32.7 % (34.0-46.0); HGB 8.8 gm/dL (11.4-16.0); Hypochromasia Marked; Lymphocytes # (A) 3.9 k/uL (1.0-4.8); Lymphocytes % (A) 40 %; MCH 18.2 pg (25.0-35.0); MCHC 26.8 g/dL (31.0-37.0); MCV 67.8 fL (80.0-100.0); Mean Platelet Volume 6.9; Microcytosis Marked; Monocytes # (A) 0.4 k/uL (0-1.0); Monocytes % (A) 4 %; Neutrophils # (A) 4.8 k/uL (1.3-7.7); Neutrophils % (A) 50 %; Platelet Count 428 k/uL (150-450); RBC 4.82 m/uL (3.80-5.40); RDW 18.6 % (11.5-15.5); WBC 9.6 k/uL (3.8-10.6)
[2024-07-26 05:22] LABS: INR 0.9 (<1.2); Partial Thromboplastin Time 22.7 sec (22.0-30.0); Prothrombin Time 10.3 sec (10.0-12.5)
[2024-07-26 05:23] LABS: African American GFR (CKD) >90 (>60 ml/min/1.73 sqM); Anion Gap 8 mmol/L; Blood Urea Nitrogen 9 mg/dL (7-17); Calcium 8.7 mg/dL (8.4-10.2); Carbon Dioxide 29 mmol/L (22-30); Chloride 100 mmol/L (98-107); Glucose 147 mg/dL (74-99); Non-African American GFR(CKD) >90 (>60 ml/min/1.73 sqM); Potassium 3.6 mmol/L (3.5-5.1); Sodium 137 mmol/L (137-145)
[2024-07-26 06:51] VITALS: PULSE 80
--- NOTE | 2024-07-26 07:27 | US ---
EXAMINATION TYPE: US venous doppler duplex LE RT DATE OF EXAM: 07/26/2024 5:01 AM COMPARISON: NONE CLINICAL INDICATION: Female, 44 years old with history of RLE swelling, venous prominence, DVT?; righ t leg pain, Pain TECHNIQUE: The lower extremity deep venous system is examined utilizing real time linear array sonog tanmay with graded compression, color doppler sonography, and spectral doppler. SIDE PERFORMED: Right FINDINGS: VESSELS IMAGED: Common Femoral Vein Deep Femoral Vein Greater Saphenous Vein * Femoral Vein Popliteal Vein Small Saphenous Vein * Proximal Calf Veins (* superficial vessels) Right Leg: No evidence for DVT, Color Doppler imaging shows patency of the vessels. Spectral wavefor ms are within normal limits. IMPRESSION: 1. No evidence of deep vein thrombosis of the right lower extremity. [facility], , 07/26/2024 7:25 AM
[2024-07-26 08:05] VITALS: BP 142/79; TEMP 97.9
== END 2024-07-26 08:05 | disposition home or self-care (01) ==
LOC: EC 03:55
DX: M79.604 Pain in right leg (principal)
CPT/HCPCS: 36415; 80048; 85025; 85610; 85730; 99284

== ENCOUNTER → 2024-08-05 | Outpatient (CLI) | payer OTHER ==
[2024-08-05 21:27] LABS: Chol/HDL Ratio 5.13 Ratio; LDL Cholesterol,Calculated 94.7 mg/dL (0.0-131.0)
[2024-08-05 21:48] LABS: % Iron Saturation 4.14 (12.00-45.00); Iron 18 UG/DL (50-170); Total Iron Binding Capacity 435 UG/DL (228-460)
== END | disposition home or self-care (01) ==
LOC: LABPAT 12:52
DX: D64.9 Anemia, unspecified (principal); E03.9 Hypothyroidism, unspecified; E66.01 Morbid (severe) obesity due to excess calories; Z68.42 Body mass index [BMI] 45.0-49.9, adult
CPT/HCPCS: 80061; 82728; 83036; 83540; 83550; 84443